=== PATIENT | male | born 1990 ===

== ENCOUNTER 2020-04-08 08:40 | Outpatient (CLI) | payer BC, MEDICAID ==
[2020-04-08 12:08] LABS: HEMOGLOBIN A1c% 5.9 % (4.27-6.07)
[2020-04-08 12:42] LABS: BASOPHILS # (AUTO) 0.1 10^3/uL (0.0-0.1); BASOPHILS % (AUTO) 0.7 %; EOSINOPHILS # (AUTO) 0.2 10^3/uL (0.0-0.7); EOSINOPHILS % (AUTO) 2.2 %; HGB - HEMOGLOBIN 14.8 g/dL (14.0-18.0); LYMPHOCYTES # (AUTO) 3.2 10^3/uL (1.5-3.5); LYMPHOCYTES % (AUTO) 37.8 %; MEAN CORPUSCULAR HEMOGLOBIN 29.2 pg (27.0-31.0); MEAN CORPUSCULAR HGB CONC 31.6 g/dL (32.0-36.0); MEAN CORPUSCULAR VOLUME 92.5 fL (80.0-94.0); MEAN PLATELET VOLUME 10.2 fL (7.4-11.4); MONOCYTES # (AUTO) 0.7 10^3/uL (0.0-1.0); MONOCYTES % (AUTO) 8.6 %; NEUTROPHILS # (AUTO) 4.3 10^3/uL (1.5-6.6); NEUTROPHILS % (AUTO) 50.5 %; PLT - PLATELET COUNT 325 10^3/uL (130-450); RED BLOOD COUNT 5.06 10^6/uL (4.70-6.10); RED CELL DISTRIBUTION WIDTH 12.6 % (12.0-15.0); WHITE BLOOD COUNT 8.5 x10^3/uL (4.8-10.8)
[2020-04-08 13:05] LABS: ALBUMIN 4.8 g/dL (3.2-5.5); ALBUMIN/GLOBULIN RATIO 1.4 (1.0-2.2); ALKALINE PHOSPHATASE 73 IU/L (42-121); ALT ALANINE AMINOTRANSFERASE 32 IU/L (10-60); AST ASPARTATE AMINOTRANSFERASE 20 IU/L (10-42); BILIRUBIN,TOTAL 0.5 mg/dL (0.2-1.0); BUN - BLOOD UREA NITROGEN 16 mg/dL (6-20); CALCIUM 10.1 mg/dL (8.5-10.3); CARBON DIOXIDE - CO2 29 mmol/L (21-32); CHLORIDE 101 mmol/L (101-111); CHOL/HDL RATIO 3.8 (<5.0); CHOLESTEROL 151 mg/dL; GLUCOSE 96 mg/dL (70-100); HDL CHOLESTEROL 40 mg/dL; LDL CHOLESTEROL,CALCULATED 81 mg/dL; SODIUM 141 mmol/L (135-145); TOTAL PROTEIN 8.2 g/dL (6.7-8.2); VLDL CHOLESTEROL 30 mg/dL
[2020-04-08 13:50] LABS: FREE T4 (FREE THYROXINE) 0.81 ng/dL (0.58-1.64)
[2020-04-13 08:08] LABS: ALBUMIN 4.5 g/dL (3.8-4.8); ALPHA 1 GLOBULIN 0.3 g/dL (0.2-0.3); ALPHA 2 GLOBULIN 0.7 g/dL (0.5-0.9); BETA 1 GLOBULIN 0.5 g/dL (0.4-0.6); BETA 2 GLOBULIN 0.3 g/dL (0.2-0.5); GAMMA GLOBULIN 1.3 g/dL (0.8-1.7)
== END 2020-04-08 08:41 | disposition home or self-care (01) ==
LOC: LAB.WCP 08:40
PROVIDERS: ATTEND Internal Medicine
DX: R20.2 Paresthesia of skin (principal)
CPT/HCPCS: 36415; 80053; 80061; 81599; 82607; 83036; 83721; 84155; 84165; 84439; 84443; 85025; 86334

== ENCOUNTER 2020-05-13 13:53 | Outpatient (CLI) | payer MEDICAID ==
[2020-05-13] MEDS ORDERED: GADOBUTROL 10 MMOL/10 ML VIAL IVP ONE ×2 (15:27)
--- NOTE | 2020-05-13 15:27 | MRI Report ---
PROCEDURE: Brain W/WO INDICATIONS: PARESTHESIA CONTRAST: IV CONTRAST: Gadavist ml: 9.5 TECHNIQUE: Noncontrast axial T1 spin echo, axial T2 fast spin echo, sagittal and axial FLAIR, coronal T2 fast sp in echo, axial gradient echo, axial diffusion and ADC through the brain. After the administration of contrast, axial and coronal T1 spin echo with fat saturation through the brain. COMPARISON: None. FINDINGS: Image quality: Excellent. CSF spaces: Basal cisterns are patent. No extra-axial fluid collections. Ventricles are normal in size and shape. Brain: No midline shift. No intracranial bleeds or masses. No abnormal intracranial enhancement. There is cerebral volume loss for age. There is periventricular white matter chronic small vessel is chemic change. The brainstem appears normal. Diffusion-weighted images demonstrate no acute ischemi c insults. No chronic ischemic insults. Normal intravascular flow voids are present. Skull and face: Calvarial marrow is normal in signal. Orbits appear normal. Sinuses: Sinuses and mastoids appear clear. IMPRESSION: Negative brain MRI. No explanation for paresthesias. No recent infarct. Reviewed by: Suyapa Villalpando MD on 05/13/2020 3:26 PM PST Approved by: Suyapa Villalpando MD on 05/13/2020 3:26 PM PST Station ID: [id number]
[2020-05-13] MEDS ORDERED: GADOBUTROL 10 MMOL/10 ML VIAL ONE (15:50)
== END 2020-05-13 13:54 | disposition home or self-care (01) ==
LOC: DI 13:53
PROVIDERS: ATTEND Internal Medicine
DX: R20.2 Paresthesia of skin (principal)
CPT/HCPCS: 70553; A9585

== ENCOUNTER 2020-07-07 08:00 | Outpatient (CLI) | payer MEDICAID ==
[2020-07-07 19:13] LABS: THYROID STIMULATING HORMONE 2.42 uIU/mL (0.34-5.60)
== END 2020-07-07 23:59 | disposition home or self-care (01) ==
LOC: LAB.WCP 08:00
PROVIDERS: ATTEND Internal Medicine
DX: E03.9 Hypothyroidism, unspecified (principal)
CPT/HCPCS: 36415; 84439; 84443

== ENCOUNTER 2021-08-24 09:32 | Outpatient (CLI) | payer OTHER ==
--- NOTE | 2021-08-24 13:10 | CT Report ---
PROCEDURE: Sinuses INDICATIONS: HEADACHE TECHNIQUE: Noncontrast 3.0 mm axial images acquired from the frontal sinuses to the mid-sella, with coronal and sagittal reformats. For radiation dose reduction, the following was used: automated exposure control , adjustment of mA and/or kV according to patient size. COMPARISON: None. FINDINGS: Image quality: Excellent. Paranasal sinuses are normally aerated. No mucosal thickening identified in the paranasal sinuses. No air-fluid levels identified in the paranasal sinus. The ostiomeatal units are patent bilaterally. Nasal septum is deviated to the right. No michael bullosa. Paradoxical right middle turbinate noted. N o osseous thickening, osseous remodeling or osseous erosive changes. IMPRESSION: No paranasal sinus mucosal thickening or air-fluid levels. Reviewed by: Marge Warren MD, PhD on 08/24/2021 1:09 PM PDT Approved by: Marge Warren MD, PhD on 08/24/2021 1:09 PM PDT Station ID: [id number]
== END 2021-08-24 09:33 | disposition home or self-care (01) ==
LOC: DI 09:32
PROVIDERS: ATTEND Internal Medicine
DX: R51.9 Headache, unspecified (principal)

== ENCOUNTER 2022-07-27 16:23 | Outpatient (CLI) | payer OTHER ==
[~2022-07-27 16:23] MED LIST: GADOBUTROL 10 MMOL/10 ML VIAL ONE
[2022-07-27] MEDS ORDERED: GADOBUTROL 10 MMOL/10 ML VIAL IVP ONE (17:57)
--- NOTE | 2022-07-27 18:44 | MRI Report ---
PROCEDURE: BRAIN W/WO INDICATIONS: HEADACHE CONTRAST: GADAVIST 8.6 ML TECHNIQUE: Noncontrast axial T1 spin echo, axial T2 fast spin echo, sagittal and axial FLAIR, coronal T2 fast sp in echo, axial gradient echo, axial diffusion and ADC through the brain. After the administration of contrast, axial and coronal T1 spin echo with fat saturation through the brain. COMPARISON: 05/13/2020 Correlation is made with the accompanying MR venogram, 07/27/2022. FINDINGS: Image quality: Excellent. CSF spaces: Basal cisterns are patent. No extra-axial fluid collections. Ventricles are normal in size and shape. Brain: No midline shift. No intracranial bleeds or masses. No abnormal intracranial enhancement. There is cerebral volume loss for age. There is periventricular white matter chronic small vessel is chemic change. The brainstem appears normal. Diffusion-weighted images demonstrate no acute ischemi c insults. No chronic ischemic insults. Normal intravascular flow voids are present. Skull and face: Calvarial marrow is normal in signal. Orbits appear normal. Sinuses: Sinuses and mastoids appear clear. IMPRESSION: A cause of headache cannot be seen on these images. No masses or abnormal enhancement can be seen. Reviewed by: Luis Alberto Ortega MD on 07/27/2022 5:42 PM [facility] Approved by: Luis Alberto Ortega MD on 07/27/2022 5:42 PM [facility] Station ID: [id number]
--- NOTE | 2022-07-27 18:45 | MRI Report ---
PROCEDURE: MRV BRAIN VENOUS WO INDICATIONS: HEADACHES X 1 YEAR. PRIOR 4, 1 TECHNIQUE: Sagittal T1 spin echo through the brain. Coronal 2D [id number] MR venogram, with 3-dimensional m ddtrvl-ilzfxupvh-hxngdlogab (MIP) reformats of the intracranial veins then performed. COMPARISON: Correlation is made with the accompanying MR angiogram, 07/27/2022. FINDINGS: Image quality: Excellent. Veins: Sagittal, straight, transverse, and sigmoid sinuses all appear patent. In this patient with this given history, scrutiny is given to the lateral aspects of the transverse sinuses. They do not a ppear abnormally narrowed. Brain: Limited images through the brain parenchyma show no intracranial bleeds or mass effects. IMPRESSION: MR venogram within normal limits. Reviewed by: Luis Alberto Ortega MD on 07/27/2022 5:43 PM [facility] Approved by: Luis Alberto Ortega MD on 07/27/2022 5:43 PM [facility] Station ID: [id number]
== END 2022-07-27 16:24 | disposition home or self-care (01) ==
LOC: DI 16:23
PROVIDERS: ATTEND Psychiatry & Neurology Neuromuscular Medicine
DX: R51.0 Headache with orthostatic component, not elsewhere classified (principal)
CPT/HCPCS: 70544; 70553; A9585

== ENCOUNTER 2023-04-19 22:33 | Emergency (ER) | payer OTHER ==
[2023-04-19] MEDS ORDERED: SODIUM CHLORIDE 0.9% 1,000 ML IV STA (23:16)
--- NOTE | 2023-04-19 23:26 | ED Physician Documentation ---
History of Present Illness - Stated complaint Stated Complaint: HERNIA - Chief complaint Chief Complaint: General - Additonal information Additional information: Patient 32-year-old male presenting with Left-sided testicular pain and left lo wer abdomen pain. Past medical significant for previous episode of pain evaluated here 03/04/2023. At that time had noncontributory CT scan and ultrasound demonstrating possible hydrocele. Was discharged for follow-up with primary care. Reports has been seen by primary care as well as with urology. States that urology did not believe that the diagnosis of hydrocele was credible and discussed the possibility of testicular bruising with the patient. Earlier today he began to experience some increased heaviness involving his left testis as well asPain in the left lower part of his scrotum and perineum. Denies any associated nausea, vomiting, change in bowel or bladder habit. Denies any previous surgical history. Denies any fever. Review of Systems Constitutional: denies: Fever Eyes: denies: Loss of vision Ears: denies: Loss of hearing Nose: denies: Rhinorrhea / runny nose Throat: denies: Dental pain / toothache Cardiac: denies: Chest pain / pressure GI: reports: Abdominal Pain : reports: Testicular pain Skin: denies: Rash Musculoskeletal: denies: Neck pain PD PAST MEDICAL HISTORY - Past Medical History Past Medical History: Yes Neuro: Other Endocrine/Autoimmune: HyPOthyroidism - Past Surgical History Past Surgical History: No - Present Medications Home Medications: Ambulatory Orders Medication Instructions Recorded Confirmed Levothyroxine Sodium 50 mcg PO DAILY 03/04/23 04/19/23 Zonisamide [Zonegran] 100 mg PO DAILY 03/04/23 04/19/23 Fluticasone [Flonase] 1 spray NS DAILY 04/19/23 04/19/23 - Allergies Allergies/Adverse Reactions: Allergies Allergy/AdvReac Type Severity Reaction Status Date / Time No Known Drug Allergies Allergy Verified 04/19/23 22:44 - Social History Does the pt smoke?: No Smoking Status: Never smoker Does the pt drink ETOH?: Yes ETOH Use: Wine, Beer, Liquor Does the pt have substance abuse?: No - Immunizations Immunizations are current?: No - POLST Patient has POLST: No PD ED PE NORMAL - Vitals Vital signs reviewed: Yes - General General: Alert and oriented X 3, No acute distress - HEENT HEENT: Atraumatic - Neck Neck: Supple, no meningeal sign - Respiratory Respiratory: No respiratory distress - Abdomen Abdomen: Normal bowel sounds, Soft, Non tender - Male Male : Hot Stick Man present, Other (Grossly normal testicular exam.) - Derm Derm: Normal color - Extremities Extremities: No deformity - Neuro Neuro: Alert and oriented X 3, bed laborer 2-12 intact, No motor deficit, Normal speech Results - Vitals Vitals: Vital Signs - 24 hr 04/19/23 04/20/23 22:38 01:00 Temperature 36.7 C Heart Rate 75 66 Respiratory 14 19 Rate Blood Pressure 152/100 H 146/99 H O2 Saturation 98 98 Oxygen O2 Source Room air - Labs Labs: Laboratory Tests 04/19/23 04/19/23 04/19/23 23:59 23:59 23:59 WBC 8.7 RBC 5.24 Hgb 15.4 Hct 47.1 MCV 89.9 MCH 29.4 MCHC 32.7 RDW 12.3 Plt Count 293 MPV 9.4 Neut # (Auto) 4.7 Lymph # (Auto) 3.3 [place] # (Auto) 0.6 Eos # (Auto) 0.1 Baso # (Auto) 0.1 Absolute Nucleated RBC 0.00 Nucleated RBC % 0.0 Sodium 140 Potassium 3.8 Chloride 101 Carbon Dioxide 31 Anion Gap 8.0 BUN 14 Creatinine 0.9 Estimated GFR (MDRD) 98 Glucose 86 Lactic Acid 0.7 Calcium 10.6 H Total Bilirubin 0.4 AST 23 ALT 31 Alkaline Phosphatase 68 Total Protein 8.3 Albumin 5.5 Globulin 2.8 Albumin/Globulin Ratio 2.0 Lipase 25 PD Medical Decision Making - ED course Complexity details: reviewed old records, reviewed results, d/w patient ED course: Patient 32-year-old male presenting with left scrotal pain. Afebrile, hemodynamically stable. Examination did not demonstrate any palpable masses or hernias or significant testicular abnormality. However ultrasonography and CT did demonstrate a partially reducible left fat- containing inguinal hernia. No indications of bowel involvement or obstruction. Labs reassuring. Will discharge for follow-up with general surgery for evaluation of fat- containing inguinal hernia. Clear return precautions given. Departure - Departure Disposition: 01 Home, Self Care Clinical Impression: Inguinal hernia Qualifiers: Obstruction and gangrene presence: without obstruction or gangrene Laterality: unilateral Recurrence: not specified as recurrent Qualified Code(s): K40.90 - Unilateral inguinal hernia, without obstruction or gangrene, not specified as recurrent Instructions: Hernia Follow-Up: Leatha Shrestha MD [Provider Admit Priv/Credential] - Comments: Thank you for allowing us to care for you today as would be health. Today in the emergency room you identified as having a left sided partially reducible inguinal hernia. There was no bowel contained in the hernia and no signs of obstruction or strangulation of bowel. This is very reassuring. I would like you to follow-up with a general surgeon however concerning your identified hernia. Attached you will find contact information for Dr. Yareli Shrestha. Please call them first thing on Saturday. You may continue to have some mild episodes of swelling or discomfort around your left groin. It is important however that if you have steady increasing pain that is not remitting or pain that is associated with any fever, nausea, vomiting, inability to tolerate food or fluid that you return to the emergency department immediately for reevaluation. Forms: PCP List
[2023-04-20 00:07] LABS: BASOPHILS # (AUTO) 0.1 10^3/uL (0.0-0.1); BASOPHILS % (AUTO) 0.6 %; EOSINOPHILS # (AUTO) 0.1 10^3/uL (0.0-0.7); EOSINOPHILS % (AUTO) 0.7 %; HCT - HEMATOCRIT 47.1 % (42.0-52.0); HGB - HEMOGLOBIN 15.4 g/dL (14.0-18.0); LYMPHOCYTES # (AUTO) 3.3 10^3/uL (1.5-3.5); LYMPHOCYTES % (AUTO) 37.6 %; MEAN CORPUSCULAR HEMOGLOBIN 29.4 pg (27.0-31.0); MEAN CORPUSCULAR HGB CONC 32.7 g/dL (32.0-36.0); MEAN CORPUSCULAR VOLUME 89.9 fL (80.0-94.0); MEAN PLATELET VOLUME 9.4 fL (7.4-11.4); MONOCYTES # (AUTO) 0.6 10^3/uL (0.0-1.0); NEUTROPHILS # (AUTO) 4.7 10^3/uL (1.5-6.6); PLT - PLATELET COUNT 293 10^3/uL (130-450); RED BLOOD COUNT 5.24 10^6/uL (4.70-6.10); RED CELL DISTRIBUTION WIDTH 12.3 % (12.0-15.0); WHITE BLOOD COUNT 8.7 x10^3/uL (4.8-10.8)
[2023-04-20 00:25] LABS: ALBUMIN 5.5 g/dL (3.2-5.5); BILIRUBIN,TOTAL 0.4 mg/dL (0.2-1.0); CALCIUM 10.6 mg/dL (8.5-10.3); CREATININE 0.9 mg/dL (0.6-1.3); POTASSIUM 3.8 mmol/L (3.5-4.5); TOTAL PROTEIN 8.3 g/dL (6.4-8.9)
[2023-04-20] MEDS ORDERED: iohexoL-300 100 ML VIAL IVP ONE (01:38)
--- NOTE | 2023-04-20 01:41 | Ultrasound Report ---
PROCEDURE: Testicle w/Doppler INDICATIONS: Right testicular pain TECHNIQUE: Real-time scanning was performed of the scrotum and testicles, with image documentation. Color and p ulse Doppler interrogation was performed of both testicles. COMPARISON: None. FINDINGS: Right: Testicle is normal in size at 4.7 x 2.6 x 2.7 cm, and homogenous in echotexture. Epididymis is normal in overall size and morphology. No hydrocele. No varicoceles. Overlying scrotal skin is n ormal in thickness. Left: Testicle is normal in size at 4.3 x 2.4 x 2.9 cm, and homogeneous in echotexture. Epididymis is normal in overall size and morphology. No hydrocele. No varicoceles. Overlying scrotal skin is n ormal in thickness. Doppler: Color and pulse Doppler demonstrate normal and symmetric arterial flow in both testicles. Incidental note of partially reducible fat-containing left inguinal hernia. The defect measures 1.3 cm in size. No abnormal fluid within the hernia sac. IMPRESSION: Unremarkable sonographic evaluation of the bilateral testicles without evidence for testicular torsio n. No acute sonographic abnormalities. Incidental note of partially reducible fat-containing left inguinal hernia. Reviewed by: Daniel Cruz MD on 04/20/2023 1:40 AM PST Approved by: Daniel Cruz MD on 04/20/2023 1:40 AM PST Station ID: [id number]
--- NOTE | 2023-04-20 01:47 | CT Report ---
PROCEDURE: ABDOMEN/PELVIS W INDICATIONS: lower abd pain CONTRAST: 100 ML OMNI 300 TECHNIQUE: After the administration of intravenous contrast, 5 mm thick sections acquired from the diaphragms to the symphysis. 5 mm thick coronal and sagittal reformats were acquired. For radiation dose reducti on, the following was used: automated exposure control, adjustment of mA and/or kV according to arnulfo ent size. COMPARISON: None. FINDINGS: Image quality: Diagnostic. Lung bases and heart: Unremarkable. Liver: No solid mass. A few tiny hepatic hypodensities are incompletely characterized but likely repr esent cysts or hemangiomas. Gallbladder and biliary tree: No radiopaque stones or wall thickening. No biliary dilation. Spleen: No splenomegaly. Pancreas: No pancreatic ductal dilation. Adrenals: No adrenal nodule. Kidneys and ureters: No hydronephrosis. No renal cystic lesion which requires follow up. No solid mas s. Bilateral ureters are normal in course and caliber. Bowel and peritoneum: No bowel distension. No pathologic free fluid. The appendix is not definitively visualized and no secondary findings for acute appendicitis identified. Moderate fecal material seen throughout the ascending and transverse colon. Lymph nodes: No central or retroperitoneal adenopathy. Vessels: No infrarenal aortic aneurysm. PELVIS Reproductive organs: Unremarkable. Bladder: No abnormal wall thickening, accounting for underdistension. Pelvic lymph nodes: No pelvic adenopathy by size criteria. Bones: No aggressive osseous abnormality. Other: No significant ventral hernia. There is a fat-containing left inguinal hernia without acute in flammation. IMPRESSION: CT abdomen and pelvis without acute abnormalities. Fat-containing left inguinal hernia without acute inflammation. Moderate fecal burden seen throughout the ascending colon and transverse colon. No evidence for bowel obstruction. The appendix is not definitively visualized. However, no secondary findings for acute appendicitis id entified. Reviewed by: Daniel Cruz MD on 04/20/2023 1:46 AM PST Approved by: Daniel Cruz MD on 04/20/2023 1:46 AM PST Station ID: [id number]
[2023-04-20 02:22] VITALS: BP 150/113; O2SAT 97
== END 2023-04-20 02:17 | disposition home or self-care (01) ==
LOC: ED 22:33
DX: K40.90 Unilateral inguinal hernia, without obstruction or gangrene, not specified as recurrent (principal); Z79.899 Other long term (current) drug therapy
CPT/HCPCS: 36415; 74177; 76870; 80053; 83605; 83690; 85025; 93975; 99283; 99284; Q9967

== ENCOUNTER 2023-07-11 09:24 | Day surgery (SDC) | payer OTHER ==
[2023-07-11] MEDS: LACTATED RINGERS 1,000 ML IV ONE ×2 (09:40→12:46)
[2023-07-11] MEDS ORDERED: ceFAZolin 2 GM VIAL ONE (09:58)
--- NOTE | 2023-07-11 10:23 | ANESTHESIA ---
Pre-Anesthesia VS, & Labs - Diagnosis LIH - Procedure Open LIH repair Vital Signs: Temp Pulse Resp BP Pulse Ox O2 Flow Rate 36.6 C 73 18 132/90 H 98 07/11/23 09:33 07/11/23 09:33 07/11/23 09:33 07/11/23 09:33 07/11/23 09:33 Height: 6 ft Weight (kg): 93 kg Body Mass Index: 27.8 BMI Classification: Overweight - NPO >8 hours Home Medications and Allergies Levothyroxine Sodium 50 mcg PO DAILY 03/04/23 Fluticasone [Flonase] 1 spray NS DAILY 04/19/23 Allergies/Adverse Reactions: Allergies Allergy/AdvReac Type Severity Reaction Status Date / Time No Known Drug Allergies Allergy Verified 07/11/23 09:32 Anes History & Medical History - Anesthetic History Anesthesia Complications: reports: No previous complications Family history of Anesthesia Complications: Denies Family history of Malignant Hyperthermia: Denies - Medical History Cardiovascular: reports: None Pulmonary: reports: None Gastrointestinal: reports: None Urinary: reports: None Neuro: reports: Other Musculoskeletal: reports: None Endocrine/Autoimmune: reports: HyPOthyroidism Skin: reports: Psoriasis Smoking Status: Never smoker Psychosocial: reports: Alcohol (2-3x/week) Exam General: Alert, Oriented x3, Cooperative Dental: WNL Mouth Opening: Greater than 4 Fingerbreadths Neck Mobility: Normal Mallampati classification: I Thyromental Distance: 4-6 cm Respiratory: Lungs clear Cardiovascular: Regular rate Plan Anesthesia Type: General Consent for Procedure(s) Verified and Reviewed: Yes Code Status: Attempt Resuscitation ASA classification: 2-Mild systemic disease Is this case an emergency?: No
[2023-07-11] MEDS ORDERED: HYDROmorphone 0.5 MG/0.5 ML SYRINGE IVP PRN (10:26)
[2023-07-11] MEDS ORDERED: METOCLOPRAMIDE 10 MG/2 ML VIAL IVP PRN (10:26)
[2023-07-11] MEDS ORDERED: ePHEDrine 50 MG/ML VIAL IVP PRN (10:26)
[2023-07-11] MEDS ORDERED: fentaNYL 100 MCG/2 ML VIAL IVP PRN (10:26)
[2023-07-11] MEDS ORDERED: ATROPINE ABBOJECT 1 MG/10 ML SYRINGE IVP PRN (10:26)
[2023-07-11] MEDS ORDERED: MORPHINE 2 MG/ML CARPUJECT IVP PRN (10:26)
[2023-07-11] MEDS ORDERED: ONDANSETRON 4 MG/2 ML VIAL IVP PRN (10:26)
[2023-07-11] MEDS ORDERED: NALOXONE 0.4 MG/ML VIAL IVP PRN (10:26)
[2023-07-11] MEDS ORDERED: ONDANSETRON 4 MG/2 ML VIAL ONE (10:45)
[2023-07-11] MEDS ORDERED: fentaNYL 100 MCG/2 ML VIAL ONE (10:45)
[2023-07-11] MEDS ORDERED: MIDAZOLAM 2 MG/2 ML VIAL ONE (10:45)
[2023-07-11] MEDS ORDERED: LACTATED RINGERS 1,000 ML IV SCH (11:00)
[2023-07-11] MEDS ORDERED: BUPIVACAINE 0.25% PF 30 ML VIAL ONE (11:00)
--- NOTE | 2023-07-11 11:14 | HISTORY & PHYSICAL EXAMINATION ---
Chief Complaint - Chief Complaint Chief Complaint: left groin bulge and pain History of Present Illness - History Obtained From Records Reviewed: yes History obtained from: pt Exam Limitations: none - History of Present Illness HPI Comment/Other: left inguinal hernia. getting worse. no problems on the right History - Past Medical History Cardiovascular: reports: None Respiratory: reports: None Neuro: reports: Other Endocrine/Autoimmune: reports: HyPOthyroidism GI: reports: None : reports: None HEENT: reports: None Psych: reports: None Musculoskeletal: reports: None Derm: reports: Psoriasis MRSA Hx?: No - POLST Patient has POLST: No Meds/Allgy - Home Medications Home Medications: Ambulatory Orders Medication Instructions Recorded Confirmed Levothyroxine Sodium 50 mcg PO DAILY 03/04/23 07/11/23 Fluticasone [Flonase] 1 spray NS DAILY 04/19/23 07/11/23 - Allergies Allergies/Adverse Reactions: Allergies Allergy/AdvReac Type Severity Reaction Status Date / Time No Known Drug Allergies Allergy Verified 07/11/23 09:32 Review of Systems - Other Findings Other Findings: 10 pt ros as above otherwise unremarkable Exam - Vital Signs Vital Signs: Vital Signs x48h Temp Pulse Resp BP Pulse Ox 07/11/23 09:33 36.6 C 73 18 132/90 H 98 - Physical Exam General Appearance: positive: No acute distress, Alert Eyes Bilateral: positive: PERRL, EOMI ENT: positive: No signs of dehydration Neck: positive: No JVD, Trachea midline Respiratory: positive: Breath sounds nml Cardiovascular: positive: Regular rate & rhythm Abdomen: positive: Other (left inguinal hernia present) Neurologic/Psychiatric: positive: Oriented x3 Conclusion/Plan - Problem List (1) Inguinal hernia Conclusion/Plan: plan open repair with mesh. parq held and consent obtained
[2023-07-11] MEDS ORDERED: PROPOFOL 200 MG/20 ML VIAL IVP ONE ×2 (11:16→12:36)
[2023-07-11] MEDS ORDERED: LIDOCAINE-PF 2% 10 ML AMP SUBQ ONE (11:16)
[2023-07-11] MEDS: BUPIVACAINE 0.25% PF 30 ML VIAL SUBQ ONE (11:51)
--- NOTE | 2023-07-11 12:57 | OPERATIVE REPORT ---
Operative Report - General Procedure Date: 07/11/23 Planned Procedure: open left inguinal hernia repair with mesh Pre-Op Diagnosis: left inguinal hernia Procedure Performed: open left inguinal hernia repair with mesh Post Op Diagnosis: direct inguinal hernia - Procedure Note Primary Surgeon: arpan lockhart Anesthesia Technique: General LMA, Local Pathology: preperitoneal fat removed not sent 3 to 4 x 6 cm Indications: painful hernia bulge Findings: dilated internal ring with significant fat present, ilioinguinal nerve more lateral than typical direct hernia Complications: none - Other Other Information/Narrative: Patient was properly identified brought to the operating room and placed in supine position. Sequential compression devices were placed. General endotracheal anesthesia was induced. He was prepped and draped in a sterile fashion and given preoperative antibiotics. Local anesthetic was given throughout the procedure. A 5 cm incision was made in the direction of Marysol's lines just cephalad of the pubic tubercle. Dissection proceeded with cutting current cautery. The superficial epigastric vein was identified clamped divided and tied with 3-0 Vicryl. Dissection proceeded down to the aponeurosis. The aponeurosis was opened in the direction of its fibers and extended to the external ring. Cord structures were mobilized and brought up. The nerves were carefully protected and preserved. Cord structures were mobilized and brought up. A large direct hernia was identified. The direct bulge was mobilized away from surrounding structures. There was no indirect inguinal hernia. Preperitoneal fat was removed. The base was tied with 2 O vicryl. Polypropylene mesh was cut to size and with tails. The mesh was secured with multiple interrupted 0 Ethibond sutures. Sutures were placed along the pubic tubercle, Chepe's ligament area and along the shelving border of Poupart's ligament. Sutures were placed medially along the abdominal wall musculature and internal oblique. The medial tail of the mesh was secured to the shelving border of Poupart's ligament with 3 interrupted 0 ethibond sutures recreating the internal ring of appropriate size. Aponeurosis was closed with a running 2-0 Vicryl suture. The opposite was closed with interrupted 3-0 Vicryl suture. Buried interrupted subdermal 3-0 Vicryl sutures were then placed. And was closed with a running 4-0 Monocryl subcuticular suture. Dressing was applied. Patient was awakened and brought to recovery in good condition.
[2023-07-11] MEDS ORDERED: HYDROcod/ACETAM 5/325 MG TABLET ONE (13:45)
[2023-07-11] MEDS: HYDROcod/ACETAM 5/325 MG TABLET PO PRN (13:48)
[2023-07-11 14:37] VITALS: BP 127/94; O2SAT 97
--- NOTE | 2023-07-11 14:42 | ANESTHESIA POST OP EVALUATION ---
Anesthesia Post Eval - Post Anesthesia Eval Vitals: Last Vital Signs Temp 36.4 C L 07/11/23 14:28 Pulse 71 07/11/23 14:28 Resp 16 07/11/23 14:28 BP 127/94 H 07/11/23 14:28 Pulse Ox 97 07/11/23 14:28 O2 Flow Rate CV Function Including HR & BP: Stable Pain Control: Satisfactory Nausea & Vomiting: Negative Mental Status: Baseline Respiratory Status: Airway Patent Hydration Status: Satisfactory Anesthesia Complications: None
== END 2023-07-11 09:25 | disposition home or self-care (01) ==
LOC: SDS 09:24
PROVIDERS: ATTEND Surgery
PROC: 0YU60JZ Supplement Left Inguinal Region with Synthetic Substitute, Open Approach (ICD-10-PCS; principal; 2023-07-11 10:45)
DX: K40.90 Unilateral inguinal hernia, without obstruction or gangrene, not specified as recurrent (principal)
CPT/HCPCS: 49505; A9270; C1781; J7120

== ENCOUNTER 2023-12-14 08:00 | Outpatient (CLI) | payer OTHER ==
[2023-12-14 22:18] LABS: CHLAMYDIA TRACHOMATIS DNA NEGATIVE (NEGATIVE); NEISSERIA GONORRHOEAE DNA NEGATIVE (NEGATIVE); TRICHOMONAS VAGINALIS DNA NEGATIVE (NEGATIVE)
== END 2023-12-14 23:59 | disposition home or self-care (01) ==
LOC: LAB.N 08:00
PROVIDERS: ATTEND Physician Assistant
DX: R30.0 Dysuria (principal)
CPT/HCPCS: 87491; 87591; 87661